=== PATIENT | male | born 1955 | race Caucasian/White ===

== ENCOUNTER 2018-04-21 11:03 | Day surgery (SDC) | payer BC ==
--- NOTE | 2018-04-07 06:29 | HP ---
PREOP HISTORY AND PHYSICAL: DATE OF ADMISSION: 04/21/18 [facility] CHIEF COMPLAINT: Right wrist pain. HISTORY OF PRESENT ILLNESS: Meredith is a 62-year-old man who has progressive chronic right wrist pain. He has posttraumatic arthritis, which has gradually gotten worse over time due to an old scapholunate ligament tear. He presents now for a proximal row carpectomy of his right wrist. PAST MEDICAL HISTORY: Significant for reflux. PAST SURGICAL HISTORY: Eye surgery. MEDICATIONS: 1. Bupropion HCl ER XL 300 mg p.o. daily. 2. Omeprazole 20 mg p.o. daily. 3. Doxazosin mesylate 4 mg p.o. daily. 4. Diclofenac sodium gel p.r.n. ALLERGIES: No known drug allergies. FAMILY HISTORY: Diabetes, heart disease, and cancer. SOCIAL HISTORY: He lives with his . He is a former smoker. Occasionally consumes alcohol. He denies drug use. REVIEW OF SYSTEMS: Negative for cephalic, cardiovascular, respiratory, gastrointestinal, genitourinary, other musculoskeletal, skin, neurologic, endocrine, and hematologic symptoms. PHYSICAL EXAMINATION GENERAL: He is a healthy-appearing, very pleasant man, in minimal distress at rest. VITAL SIGNS: His height is 70 inches, weighs 194 pounds. Pulse 58, blood pressure 124/84, respirations 16. HEENT: He has good range of motion of his neck without pain. No masses are palpated. His eye movements are slightly nonconcentric. Pupils are reactive. LUNGS: Clear to auscultation. Good inspiratory effort. No wheezing. CARDIAC: Regular rate and rhythm without murmur. PERIPHERAL VASCULAR: He has palpable pulses and no peripheral edema. EXTREMITIES: He has loss of motion in his right wrist with pain in flexion and extension, tenderness at the dorsal radiocarpal joint. He can make a full fist and fully extend his fingers. NEUROLOGICAL: He is alert and oriented without focal deficit. DIAGNOSTIC STUDIES: X-ray of the right wrist shows scapholunate advanced collapse. 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 PLAN: Plan is for a proximal row carpectomy of the right wrist. We will see the patient back in followup approximately 10 days postop. [id number]/[facility] #: [id number] [facility]
[~2018-04-21 11:03] MED LIST: Buffered Lidocaine 0.9% SYRIN* 5 ML/SYR SYRINGE INTRADERM ONE
[2018-04-21] MEDS ORDERED: ceFAZolin 2 GM PREMIX in ORs 2 GM/50 ML BAG IVPB ONE (11:15)
[2018-04-21] MEDS ORDERED: ROPIVACAINE 5 MG/ML 30 ML BTL (0.5%) ONE (12:23)
[2018-04-21] MEDS ORDERED: fentaNYL* 50 MCG/ML 2 ML VIAL (100 MCG VIAL) ONE (12:36)
[2018-04-21] MEDS ORDERED: Midazolam* 1 MG/ML 2 ML VIAL (2 MG) ONE (12:36)
[2018-04-21] MEDS ORDERED: Propofol* 10 MG/ML 20 ML BTL IV PUSH ONE (12:37)
[2018-04-21] MEDS ORDERED: Lidocaine 2% PF * 5 ML VIAL ONE (12:37)
[2018-04-21] MEDS ORDERED: Dexamethasone IV* 4 MG/ML 1 ML (4 MG) ONE (13:23)
[2018-04-21] MEDS ORDERED: fentaNYL* 50 MCG/ML 2 ML VIAL (100 MCG VIAL) IV PRN (13:30)
[2018-04-21] MEDS ORDERED: Ketorolac INJ* 30 MG/ML 1 ML VIAL IV PRN (13:30)
[2018-04-21] MEDS ORDERED: Ondansetron INJ* 2 MG/ML VIAL IV PRN (13:30)
[2018-04-21] MEDS ORDERED: Naloxone* 0.4 MG/ML 1 ML VIAL IV PRN (13:30)
[2018-04-21] MEDS ORDERED: HYDROcodone/ACETAMIN 5-325 MG* 1 TAB ONE (14:14)
[2018-04-21] MEDS ORDERED: Ketorolac INJ* 30 MG/ML 1 ML VIAL ONE (14:14)
[2018-04-21 15:19] VITALS: BP 116/65
--- NOTE | 2018-04-22 10:52 | OP ---
DATE OF OPERATION: 04/21/18 [facility] DATE OF : 55 SURGEON: Dolores Forte MD HAND SHAKER: CARLOS Decker ANESTHESIA: General and block. PRE-OP DIAGNOSIS: Right wrist scapholunate advanced collapse. POST-OP DIAGNOSIS: Right wrist scapholunate advanced collapse. OPERATIVE PROCEDURE: Proximal row carpectomy on the right. ESTIMATED BLOOD LOSS: Zero. TOURNIQUET TIME: About 45 minutes. INDICATIONS FOR PROCEDURE: Meredith is a 62-year-old man who suffered an injury of his right wrist many years ago. He now has developed wrist arthritis with scapholunate advanced collapse, presents for proximal row carpectomy on the right. DESCRIPTION OF PROCEDURE: The patient was brought to the operating room, was given a general anesthetic after an axillary block and was placed in the supine position on the operating table with a tourniquet around his right upper arm. Skin of his right upper extremity was prepped and draped in the usual sterile fashion. The upper extremity was exsanguinated and the tourniquet elevated to 250 mmHg. A longitudinal incision was made on the dorsal aspect of the wrist and we dissected through the subcutaneous tissue down to the extensor retinaculum. The third compartment was incised and the EPL tendon was transposed radially. The posterior interosseous was removed over a 1 cm section. We then made a longitudinal incision in the wrist joint capsule and subperiosteally dissected it off of the distal radius. With traction, I was able to gain access to the proximal row carpal bones. There was significant degenerative change on the scaphoid and lunate, but not the capitate nor the capitate fossa. The scaphoid lunate and triquetrum were removed in their entirety without difficulty and then the capitate sat very nicely into the lunate fossa. A small radial styloidectomy was then done with an osteotome. The wound was copiously irrigated with saline. The wrist joint capsule was closed in interrupted fashion with 2-0 Vicryl suture. The extensor retinaculum was repaired with the EPL tendon left superficial, also with 2-0 Vicryl suture. The skin edges were reapproximated with 4-0 nylon suture and the wound was dressed with Xeroform, 4 x 4, Webril, and a volar splint. The patient tolerated the procedure well and was brought to the recovery room in good condition. [id number]/[facility] #: [id number] TIFFANY
== END 2018-04-21 15:13 | disposition home or self-care (01) ==
LOC: OREAST 11:03
PROVIDERS: ATTEND Orthopaedic Surgery
DX: M85.841 Other specified disorders of bone density and structure, right hand (principal); M25.531 Pain in right wrist; Z87.891 Personal history of nicotine dependence
CPT/HCPCS: J0690; J1100; J1885; J2250; J2704; J2795; J3010

== ENCOUNTER 2019-04-27 06:19 | Day surgery (SDC) | payer BC ==
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
[~2019-04-27 06:19] MED LIST changes: -Buffered Lidocaine 0.9% SYRIN* 5 ML/SYR SYRINGE INTRADERM ONE; +Buffered Lidocaine 1% SYRIN* 1 ML/SYRINGE INTRADERM ONE; +Lactated Ringers 1000 ML Bag* 1,000 ML IV SCH
[2019-04-27] MEDS ORDERED: Midazolam* 1 MG/ML 2 ML VIAL (2 MG) ONE (07:17)
[2019-04-27] MEDS ORDERED: Propofol* 10 MG/ML 20 ML BTL ONE (07:17)
[2019-04-27] MEDS ORDERED: fentaNYL* 50 MCG/ML 2 ML VIAL (100 MCG VIAL) ONE (07:17)
[2019-04-27] MEDS ORDERED: Lidocaine 2% PF * 5 ML VIAL ONE (07:18)
[2019-04-27] MEDS ORDERED: Bupivacaine 0.5% SDV PF* 30ML VIAL ONE (07:24)
[2019-04-27] MEDS ORDERED: Ketorolac INJ* 30 MG/ML 1 ML VIAL ONE (07:45)
[2019-04-27] MEDS ORDERED: Dexamethasone IV* 4 MG/ML 1 ML (4 MG) ONE (07:45)
[2019-04-27] MEDS ORDERED: Ondansetron INJ* 2 MG/ML VIAL ONE (07:45)
[2019-04-27] MEDS ORDERED: Metoclopramide IV* 5 MG/ML 2 ML VIAL ONE (07:45)
[2019-04-27] MEDS ORDERED: DiMENhydriNATE IV* 50 MG/ML VIAL IV PUSH PRN (08:00)
[2019-04-27] MEDS ORDERED: oxyCODONE/Acetamin 5/325 MG* TAB PO PRN (08:00)
[2019-04-27] MEDS ORDERED: Acetaminophen TAB* 325 MG PO PRN (08:00)
[2019-04-27] MEDS ORDERED: Naloxone* 0.4 MG/ML 1 ML VIAL IV PRN (08:00)
[2019-04-27] MEDS ORDERED: fentaNYL* 50 MCG/ML 2 ML VIAL (100 MCG VIAL) IV PRN (08:00)
[2019-04-27 09:17] VITALS: BP 109/64
--- NOTE | 2019-04-27 16:43 | OP ---
DATE OF OPERATION: 04/27/19 [facility] DATE OF : 55 SURGEON: Dolores Forte MD HEATING EQUIPMENT REPAIRER: CARLOS Sheikh ANESTHESIA: General. PRE-OP DIAGNOSIS: Posttraumatic arthritis of the left wrist. POST-OP DIAGNOSIS: Posttraumatic arthritis of the left wrist. OPERATIVE PROCEDURE: Left wrist proximal row carpectomy, posterior interosseous neurectomy and radial styloidectomy. INDICATIONS: Meredith is a 63-year-old man who has posttraumatic arthritis of the left wrist. He has an old scapholunate ligament tear with advanced collapse. He presents for proximal row carpectomy. ESTIMATED BLOOD LOSS: Zero. TOURNIQUET TIME: About 45 minutes. DESCRIPTION OF PROCEDURE: The patient was brought to the operating room and was given a sedation anesthetic and placed in supine position on operating table with a tourniquet around his left upper arm. The skin of his left upper extremity was prepped and draped in the usual sterile fashion. The upper extremity was exsanguinated and the tourniquet elevated to 250 mmHg. A longitudinal incision was made on dorsal aspect of the wrist ulnar to lesser tubercle and dissected through the subcutaneous tissue down to the extensor retinaculum. The retinaculum was opened in the third compartment and the EPL tendon was transposed radially. The posterior interosseous nerve was located in the floor of the fourth compartment and was removed and the ends cauterized with the Bovie. The fourth compartment tendons were retracted and then a longitudinal incision was made in the wrist joint capsule. The capsule was subperiosteally dissected off of the dorsal rim of the distal radius. This exposed the proximal row carpal bones which were removed in their entirety. The articular surface of radius at the lunate fossa and the proximal pole of the capitate were in excellent condition. The patient capitate sat very nicely in the lunate fossa. The radial styloid was removed with an osteotome and rongeur. The wound was copiously irrigated with saline. The wrist joint capsule was reapproximated with 2-0 Vicryl suture. The retinaculum was repaired with the EPL tendon superficial to it, also with 2-0 Vicryl suture. The skin edges were reapproximated with 4-0 nylon suture. The wound was dressed with Xeroform, 4x4, Webril, and a volar splint. The patient tolerated the procedure well and was brought to the recovery room in good condition. [id number]/[facility] #: [id number] TIFFANY
== END 2019-04-27 09:40 | disposition home or self-care (01) ==
LOC: OREAST 06:19
PROVIDERS: ATTEND Orthopaedic Surgery
DX: M19.132 Post-traumatic osteoarthritis, left wrist (principal); F41.8 Other specified anxiety disorders; K21.9 Gastro-esophageal reflux disease without esophagitis; N40.0 Benign prostatic hyperplasia without lower urinary tract symptoms; Z87.891 Personal history of nicotine dependence
CPT/HCPCS: 88304; 88311; J1100; J1885; J2250; J2405; J2704; J2765; J3010; J3490